=== PATIENT | male | born 1980 | race Caucasian/White ===

== ENCOUNTER 2022-05-27 08:00 | Outpatient (CLI) | payer MEDICAID ==
--- NOTE | 2022-05-27 22:47 | XRAY Report ---
PROCEDURE: Lumbar Spine 2 View INDICATIONS: LOW BACK PAIN TECHNIQUE: 3 views of the lumbar spine were acquired. COMPARISON: None. FINDINGS: Bones: 5 [id number] vertebrae are present. No significant curvature of the lumbar spine. 3 mm retrolisthesis L3 on L4. Moderate multilevel degenerative changes with disc height loss, endplate spu rring, and facet arthropathy. No vertebral body compression fractures. No suspicious bony lesions. Soft tissues: Overlying bowel gas pattern is normal. IMPRESSION: Moderate multilevel degenerative changes of the lumbar spine. Reviewed by: Ish Prasad MD on 05/27/2022 10:46 PM PST Approved by: Ish Prasad MD on 05/27/2022 10:46 PM PST Station ID: [id number]
== END 2022-05-27 23:59 | disposition home or self-care (01) ==
LOC: DI.S 08:00
PROVIDERS: ATTEND Nurse Practitioner
DX: M47.816 Spondylosis without myelopathy or radiculopathy, lumbar region (principal)

== ENCOUNTER 2022-07-06 20:55 | Outpatient (CLI) | payer MEDICAID | END 2022-07-06 20:56 | disposition EMS.NT | LOC: EMS 20:55 | DX: R50.9 Fever, unspecified (principal) ==

== ENCOUNTER 2022-09-16 10:20 | Emergency (ER) | payer MEDICAID ==
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
[2022-09-16] MEDS ORDERED: DEXAMETHASONE 10 MG/ML VIAL PO STA (11:13)
[2022-09-16] MEDS ORDERED: ACETAMINOPHEN 325 MG TABLET PO STA (11:13)
[2022-09-16] MEDS ORDERED: methocarbamoL 500 MG TABLET PO STA (11:13)
[2022-09-16] MEDS ORDERED: CHERRY SYRUP 10 ML UDC PO ONE (11:13)
[2022-09-16] MEDS ORDERED: MUPIROCIN 2% OINT 1 GM TOP STA (11:13)
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
--- NOTE | 2022-09-16 13:24 | CT Report ---
PROCEDURE: UPPER EXTREMITY WO - RT INDICATIONS: possible scapular fracture TECHNIQUE: Noncontrast 2 mm axial sections were acquired through the elbow joint, with coronal and sagittal refo rmats. For radiation dose reduction, the following was used: automated exposure control, adjustment of mA and/or kV according to patient size. COMPARISON: None. FINDINGS: Image quality: Excellent. Bones: Comminuted scapular fracture with displacement. There is nondisplaced distal right clavicula r fracture. Soft tissues: Mild tissue edema at the fracture site. IMPRESSION: Comminuted scapular fracture with displacement. Nondisplaced right clavicular fracture. Reviewed by: Mellissa Lucas MD on 09/16/2022 1:22 PM PDT Approved by: Mellissa Lucas MD on 09/16/2022 1:22 PM PDT Station ID: [id number]
[2022-09-16 13:34] VITALS: BP 125/80
== END 2022-09-16 13:39 | disposition home or self-care (01) ==
LOC: ED 10:20
DX: S42.034A Nondisplaced fracture of lateral end of right clavicle, initial encounter for closed fracture (principal); S42.101A Fracture of unspecified part of scapula, right shoulder, initial encounter for closed fracture; S39.012A Strain of muscle, fascia and tendon of lower back, initial encounter; V29.99XA Rider (driver) (passenger) of other motorcycle injured in unspecified traffic accident, initial encounter
CPT/HCPCS: 73030; 73200; 99283; 99284; A9270

== ENCOUNTER 2022-09-22 08:00 | Outpatient (CLI) | payer MEDICAID ==
--- NOTE | 2022-09-22 11:51 | XRAY Report ---
PROCEDURE: Shoulder 3 View RT INDICATIONS: RIGHT SHOULDER INJURY/CLAVICLE FRACTURE TECHNIQUE: 5 views of the shoulder were acquired. COMPARISON: 09/16/2022. FINDINGS: Bones: Similar comminuted scapular fracture and mid clavicle fracture. Glenohumeral and acromioclavic ular joint space narrowing with associated osteophytic lipping of the glenoid and formed osteophytes about the AC joint. Soft tissues: No suspicious soft tissue calcifications. IMPRESSION: Stable scapular and mid clavicle fracture. Moderate shoulder osteophytosis. Reviewed by: Ras Arteaga on 09/22/2022 11:49 AM PDT Approved by: Ras Arteaga on 09/22/2022 11:49 AM PDT Station ID: [id number]
--- NOTE | 2022-09-22 12:41 | XRAY Report ---
PROCEDURE: Shoulder 3 View LT INDICATIONS: LEFT SHOULDER PAIN TECHNIQUE: 4 views of the shoulder were acquired. COMPARISON: None. FINDINGS: Bones: Mild acromioclavicular degenerative changes. No displaced fracture or dislocation. Soft tissues: No suspicious calcifications. IMPRESSION: Mild acromioclavicular degenerative changes without acute radiographic abnormality. If there is high concern for further derangement, consider MRI evaluation. Reviewed by: Cliff Chiu MD on 09/22/2022 12:40 PM PDT Approved by: Cliff Chiu MD on 09/22/2022 12:40 PM PDT Station ID: [id number]
== END 2022-09-22 23:59 | disposition home or self-care (01) ==
LOC: DI.WOS 08:00
PROVIDERS: ATTEND Physician Assistant Surgical
DX: S42.101A Fracture of unspecified part of scapula, right shoulder, initial encounter for closed fracture (principal); S42.021A Displaced fracture of shaft of right clavicle, initial encounter for closed fracture; M19.012 Primary osteoarthritis, left shoulder; M19.011 Primary osteoarthritis, right shoulder; M25.711 Osteophyte, right shoulder

== ENCOUNTER 2022-11-04 16:38 | Outpatient (CLI) | payer MEDICAID ==
--- NOTE | 2022-11-04 10:30 | XRAY Report ---
PROCEDURE: Clavicle RT INDICATIONS: RIGHT CLAVICLE FRACTURE TECHNIQUE: 2 views of the clavicle were acquired. COMPARISON: Right shoulder radiographs 09/22/2022 FINDINGS: Bones: Redemonstrated right mid clavicle fracture with mild apex cephalad angulation, similar in ali gnment to before. Adjacent bony callus is now present. Soft tissues: No suspicious soft tissue calcifications . IMPRESSION: Similar alignment of the previously demonstrated clavicle fracture. Reviewed by: Ish Prasad MD on 11/04/2022 10:29 AM PDT Approved by: Ish Prasad MD on 11/04/2022 10:29 AM PDT Station ID: [id number]
--- NOTE | 2022-11-04 10:34 | XRAY Report ---
PROCEDURE: Shoulder 2 View RT INDICATIONS: RIGHT SCAPULA FRACTURE TECHNIQUE: 2 views of the shoulder were acquired. COMPARISON: Right shoulder radiographs 09/22/2022, CT right shoulder 09/16/2022 FINDINGS: Bones: No obvious change identified in the previously demonstrated right scapular fracture, better e valuated on prior CT. No glenohumeral joint dislocation. Acromioclavicular and glenohumeral joint deg enerative changes are present. Right clavicle dictated separately. Soft tissues: No suspicious soft tissue calcifications. IMPRESSION: No obvious significant change identified in the previously demonstrated right scapular fracture, bett er evaluated on prior CT. Reviewed by: Ish Prasad MD on 11/04/2022 10:32 AM PDT Approved by: Ish Prasad MD on 11/04/2022 10:32 AM PDT Station ID: [id number]
== END 2022-11-04 16:39 | disposition home or self-care (01) ==
LOC: DI.WOS 16:38
PROVIDERS: ATTEND Physician Assistant Surgical
DX: S42.024D Nondisplaced fracture of shaft of right clavicle, subsequent encounter for fracture with routine healing (principal); S42.111D Displaced fracture of body of scapula, right shoulder, subsequent encounter for fracture with routine healing

== ENCOUNTER 2022-12-05 07:47 | Outpatient (CLI) | payer MEDICAID ==
[2022-12-05 07:59] LABS: BASOPHILS # (AUTO) 0.1 10^3/uL (0.0-0.1); BASOPHILS % (AUTO) 0.9 %; EOSINOPHILS # (AUTO) 0.1 10^3/uL (0.0-0.7); EOSINOPHILS % (AUTO) 1.7 %; HCT - HEMATOCRIT 44.8 % (42.0-52.0); HGB - HEMOGLOBIN 14.9 g/dL (14.0-18.0); LYMPHOCYTES # (AUTO) 2.7 10^3/uL (1.5-3.5); LYMPHOCYTES % (AUTO) 38.8 %; MEAN CORPUSCULAR HEMOGLOBIN 32.7 pg (27.0-31.0); MEAN CORPUSCULAR HGB CONC 33.3 g/dL (32.0-36.0); MEAN CORPUSCULAR VOLUME 98.2 fL (80.0-94.0); MEAN PLATELET VOLUME 9.1 fL (7.4-11.4); MONOCYTES # (AUTO) 0.5 10^3/uL (0.0-1.0); MONOCYTES % (AUTO) 6.5 %; NEUTROPHILS # (AUTO) 3.6 10^3/uL (1.5-6.6); NEUTROPHILS % (AUTO) 51.8 %; PLT - PLATELET COUNT 272 10^3/uL (130-450); RED BLOOD COUNT 4.56 10^6/uL (4.70-6.10); RED CELL DISTRIBUTION WIDTH 11.9 % (12.0-15.0); WHITE BLOOD COUNT 6.9 x10^3/uL (4.8-10.8)
[2022-12-05 08:15] LABS: ALBUMIN 4.5 g/dL (3.2-5.5); ALBUMIN/GLOBULIN RATIO 1.4 (1.0-2.2); ALKALINE PHOSPHATASE 83 IU/L (42-121); ALT ALANINE AMINOTRANSFERASE 22 IU/L (10-60); AST ASPARTATE AMINOTRANSFERASE 24 IU/L (10-42); BILIRUBIN,TOTAL 0.7 mg/dL (0.2-1.0); BUN - BLOOD UREA NITROGEN 12 mg/dL (6-20); CARBON DIOXIDE - CO2 28 mmol/L (21-32); CHLORIDE 102 mmol/L (101-111); CHOL/HDL RATIO 4.3 (<5.0); CHOLESTEROL 250 mg/dL; CREATININE 0.9 mg/dL (0.6-1.2); GFR - MDRD 93 (>89); GLUCOSE 116 mg/dL (70-100); HDL CHOLESTEROL 58 mg/dL; LDL CHOLESTEROL,CALCULATED 177 mg/dL; LDL/HDL RATIO 3.1 (<3.6); POTASSIUM 3.7 mmol/L (3.5-5.0); SODIUM 138 mmol/L (135-145); TOTAL PROTEIN 7.7 g/dL (6.7-8.2); TRIGLYCERIDES 74 mg/dL; VLDL CHOLESTEROL 15 mg/dL
[2022-12-05 08:26] LABS: THYROID STIMULATING HORMONE 0.57 uIU/mL (0.34-5.60)
== END 2022-12-05 07:48 | disposition home or self-care (01) ==
LOC: LAB 07:47
PROVIDERS: ATTEND Nurse Practitioner Family
DX: Z79.899 Other long term (current) drug therapy (principal); Z13.220 Encounter for screening for lipoid disorders; Z12.5 Encounter for screening for malignant neoplasm of prostate; Z13.29 Encounter for screening for other suspected endocrine disorder
CPT/HCPCS: 36415; 80053; 80061; 83721; 84153; 84443; 85025

== ENCOUNTER 2022-12-18 11:37 | Outpatient (CLI) | payer MEDICAID ==
[2022-12-18 11:53] LABS: BASOPHILS # (AUTO) 0.1 10^3/uL (0.0-0.1); BASOPHILS % (AUTO) 0.9 %; EOSINOPHILS # (AUTO) 0.1 10^3/uL (0.0-0.7); EOSINOPHILS % (AUTO) 1.2 %; HCT - HEMATOCRIT 40.6 % (42.0-52.0); HGB - HEMOGLOBIN 13.5 g/dL (14.0-18.0); LYMPHOCYTES # (AUTO) 1.5 10^3/uL (1.5-3.5); LYMPHOCYTES % (AUTO) 25.5 %; MEAN CORPUSCULAR HEMOGLOBIN 32.7 pg (27.0-31.0); MEAN CORPUSCULAR HGB CONC 33.3 g/dL (32.0-36.0); MEAN CORPUSCULAR VOLUME 98.3 fL (80.0-94.0); MONOCYTES # (AUTO) 0.4 10^3/uL (0.0-1.0); MONOCYTES % (AUTO) 6.9 %; NEUTROPHILS # (AUTO) 3.8 10^3/uL (1.5-6.6); NEUTROPHILS % (AUTO) 65.3 %; PLT - PLATELET COUNT 249 10^3/uL (130-450); RED BLOOD COUNT 4.13 10^6/uL (4.70-6.10); RED CELL DISTRIBUTION WIDTH 11.8 % (12.0-15.0); WHITE BLOOD COUNT 5.8 x10^3/uL (4.8-10.8)
[2022-12-18 12:35] LABS: FOLATE 5.96 ng/mL (5.90 - >24.8)
== END 2022-12-18 11:38 | disposition home or self-care (01) ==
LOC: LAB 11:37
PROVIDERS: ATTEND Nurse Practitioner Family
DX: D53.9 Nutritional anemia, unspecified (principal)
CPT/HCPCS: 36415; 82607; 82746; 85025

== ENCOUNTER 2023-01-09 08:13 | Outpatient (CLI) | payer MEDICAID ==
--- NOTE | 2023-01-09 12:23 | MRI Report ---
PROCEDURE: CERVICAL SPINE WO INDICATIONS: LUMBOSACRAL RADICULOPATHY, CERVICAL SPINE PAIN TECHNIQUE: Noncontrast sagittal T1 spin echo and T2 fast spin echo, sagittal STIR, foraminal oblique sagittal T2 fast spin echo, and axial gradient echo or T2 fast spin echo through the cervical spine. COMPARISON: None. FINDINGS: Image quality: Excellent. Alignment and Curvature: Straightening of normal cervical lordosis. No spondylolisthesis. Bone Marrow: Marrow demonstrates normal overall signal. Spinal Cord: Congenital narrowing of the spinal canal. Visualized spinal cord has normal size and si gnal. No cerebellar tonsillar herniation. Paraspinous Soft Tissues: No paravertebral masses. Prevertebral soft tissues are normal in thicknes s. C2-C3: Central posterior disc extrusion abutting the ventral cord and mild cord deformity. No cord s ignal abnormality. Moderate central canal stenosis. Facet and uncovertebral arthropathy resulting in moderate right and mild left neuroforaminal stenosis. C3-C4: Left paracentral posterior disc osteophyte complex resulting in moderate central canal steno sis with mild cord deformation. Facet and uncovertebral arthropathy resulting in mild left neuroforam inal stenosis. No right neuroforaminal stenosis. C4-C5: Small posterior disc suspect complex abutting the ventral cord resulting in moderate central canal stenosis. Facet and uncovertebral arthropathy resulting in moderate bilateral neuroforaminal st enosis. C5-C6: Posterior disc osteophyte complex with complete effacement of CSF space and mild cord chun saray, consistent with severe central canal stenosis. Facet and uncovertebral arthropathy resulting in severe left and moderate right neuroforaminal stenosis. C6-C7: Posterior disc osteophyte complex resulting in mild central canal stenosis. Facet and uncover tebral arthropathy resulting in moderate bilateral neuroforaminal stenosis. C7-T1: Normal in appearance. 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 This results i n multilevel moderate central canal stenosis as described above. There is complete effacement of CSF space at C5-C6 with mild cord compression, consistent with severe central canal stenosis. 2.Multilevel neuroforaminal narrowing, worse at C5-C6 with severe left and moderate right neuroforami nal stenosis. Multiple additional levels of moderate bilateral neuroforaminal narrowing as described above. Reviewed by: Brijesh Casey MD on 01/09/2023 12:22 PM PDT Approved by: Brijesh Casey MD on 01/09/2023 12:22 PM PDT Station ID: [id number]
--- NOTE | 2023-01-09 12:29 | MRI Report ---
PROCEDURE: LUMBAR SPINE WO INDICATIONS: LUMBOSACRAL RADICULOPATHY, CERVICAL SPINE PAIN TECHNIQUE: Noncontrast sagittal T1 spin echo and T2 fast echo, sagittal STIR, axial T1 and T2 fast spin echo thr ough the lumbar spine. In cases with scoliosis, additional coronal T2 fast spin echo may be performe d. COMPARISON: None. FINDINGS: Image quality: Excellent. Alignment and Curvature: Straightening of normal lumbar lordosis. No spondylolisthesis.. Bone Marrow: Marrow is of normal overall signal. No acute vertebral body compression fractures. Spinal Cord: Congenital narrowing of the lumbar spinal canal. Conus medullaris terminates at the L1- L2 level. Visualized cord demonstrates normal signal and size. Paraspinous Soft Tissues: No paravertebral masses. T12-L1: Facet arthropathy. No central canal or neuroforaminal stenosis. L1-L2: Disc desiccation and height loss with a posterior disc bulge. Facet arthropathy and thicken ing of ligamentum flavum. Epidural lipomatosis. Moderate central canal stenosis. Mild left neuroforam inal stenosis. No right neuroforaminal stenosis. L2-L3: Disc desiccation and height loss with a small posterior disc bulge. Facet arthropathy, thic kening of ligamentum flavum and epidural lipomatosis. Moderate central canal stenosis. No neuroforami nal stenosis. L3-L4: Disc desiccation and height loss with a posterior disc bulge. Facet arthropathy and thickeni ng of ligamentum flavum. Epidural lipomatosis. Moderate to severe central canal stenosis. No neurofor aminal stenosis. L4-L5: Disc desiccation. Diffuse disc bulge with superimposed right posterolateral disc protrusion. Facet arthropathy and thickening of ligamentum flavum. Severe central canal stenosis. Severe right n euroforaminal stenosis. Mild left neuroforaminal stenosis. L5-S1: Disc desiccation and height loss. Small central protrusion. Facet arthropathy. No central ca nal stenosis. No neuroforaminal stenosis. IMPRESSION: 1.Multilevel degenerative changes of the lumbar spine in combination with congenital narrowing of the lumbar spinal canal. This results in multilevel moderate central canal stenosis. There is moderate t o severe central canal stenosis at L3-L4 and severe central canal stenosis at L4-L5. 2.Severe right neuroforaminal stenosis at L4-L5 secondary to posterior lateral disc bulge. No signifi cant neuroforaminal stenosis at the levels. Reviewed by: Brijesh Casey MD on 01/09/2023 12:27 PM PDT Approved by: Brijesh Casey MD on 01/09/2023 12:27 PM PDT Station ID: [id number]
== END 2023-01-09 08:14 | disposition home or self-care (01) ==
LOC: DI 08:13
PROVIDERS: ATTEND Orthopaedic Surgery Orthopaedic Surgery of the Spine
DX: M47.816 Spondylosis without myelopathy or radiculopathy, lumbar region (principal); M48.061 Spinal stenosis, lumbar region without neurogenic claudication; M48.02 Spinal stenosis, cervical region

== ENCOUNTER 2024-01-05 09:15 | Outpatient (CLI) | payer MEDICAID ==
[2024-01-05 09:31] LABS: BASOPHILS % (AUTO) 0.8 %; EOSINOPHILS # (AUTO) 0.1 10^3/uL (0.0-0.7); EOSINOPHILS % (AUTO) 2.8 %; HGB - HEMOGLOBIN 13.4 g/dL (14.0-18.0); LYMPHOCYTES # (AUTO) 1.7 10^3/uL (1.5-3.5); LYMPHOCYTES % (AUTO) 34.3 %; MEAN CORPUSCULAR HEMOGLOBIN 32.5 pg (27.0-31.0); MEAN CORPUSCULAR HGB CONC 31.9 g/dL (32.0-36.0); MEAN CORPUSCULAR VOLUME 101.9 fL (80.0-94.0); MEAN PLATELET VOLUME 9.1 fL (7.4-11.4); MONOCYTES # (AUTO) 0.4 10^3/uL (0.0-1.0); MONOCYTES % (AUTO) 7.9 %; NEUTROPHILS # (AUTO) 2.7 10^3/uL (1.5-6.6); PLT - PLATELET COUNT 251 10^3/uL (130-450); RED BLOOD COUNT 4.12 10^6/uL (4.70-6.10); WHITE BLOOD COUNT 5.1 x10^3/uL (4.8-10.8)
[2024-01-05 09:50] LABS: CHOL/HDL RATIO 2.5 (<5.0); CHOLESTEROL 168 mg/dL; HDL CHOLESTEROL 67 mg/dL; LDL CHOLESTEROL,CALCULATED 68 mg/dL; TRIGLYCERIDES 166 mg/dL; VLDL CHOLESTEROL 33 mg/dL
[2024-01-05 09:54] LABS: ALBUMIN 4.3 g/dL (3.2-5.5); ALKALINE PHOSPHATASE 53 IU/L (42-121); ALT ALANINE AMINOTRANSFERASE 11 IU/L (10-60); AST ASPARTATE AMINOTRANSFERASE 16 IU/L (10-42); BILIRUBIN,TOTAL 0.4 mg/dL (0.2-1.0); BUN - BLOOD UREA NITROGEN 14 mg/dL (6-20); CALCIUM 9.2 mg/dL (8.5-10.3); CARBON DIOXIDE - CO2 33 mmol/L (21-32); CHLORIDE 105 mmol/L (101-111); CREATININE 0.9 mg/dL (0.6-1.3); GFR - MDRD 92 (>89); GLUCOSE 93 mg/dL (74-104); POTASSIUM 4.1 mmol/L (3.5-4.5); SODIUM 140 mmol/L (135-145); TOTAL PROTEIN 6.4 g/dL (6.4-8.9)
[2024-01-05 10:01] LABS: THYROID STIMULATING HORMONE 0.86 uIU/mL (0.34-5.60)
== END 2024-01-05 09:16 | disposition home or self-care (01) ==
LOC: LAB 09:15
PROVIDERS: ATTEND Nurse Practitioner Family
DX: Z00.00 Encounter for general adult medical examination without abnormal findings (principal)
CPT/HCPCS: 36415; 80053; 80061; 83721; 84443; 85025